=== PATIENT | male | born 1970 | race Caucasian/White ===

== ENCOUNTER → 2018-08-24 | Outpatient (CLI) | payer BC | LOC: M.MRI 07:30 → EDSEX 08:17 → M.MRI 08-28 13:30 | DX: M47.812 Spondylosis without myelopathy or radiculopathy, cervical region (principal); M48.02 Spinal stenosis, cervical region; M50.223 Other cervical disc displacement at C6-C7 level; M50.323 Other cervical disc degeneration at C6-C7 level; M25.78 Osteophyte, vertebrae; Z87.821 Personal history of retained foreign body fully removed ==

== ENCOUNTER → 2019-06-07 | Outpatient (CLI) | payer BC | LOC: M.ULTRA 11:30 | DX: I82.4Z3 Acute embolism and thrombosis of unspecified deep veins of distal lower extremity, bilateral (principal) ==